=== PATIENT | female | born 1955 | race Caucasian/White ===

== ENCOUNTER 2017-04-18 07:45 | Day surgery (SDC) | payer OTHER ==
[~2017-04-18] VITALS: Ht 152.4 cm; Wt 87.0 kg
[2017-04-18] VITALS (11 sets, daily range): BP systolic 108–152; BP diastolic 46–74; PULSE 80–93; RESP 9–17; Ht 152.4 cm; Wt 87.0 kg
[~2017-04-18 07:45] MED LIST: ATROPINE 1 MG/10 ML SYRINGE IV PRN; BALANCED SALT SOLN 15 ML OPH IRRIG ONE; DIPHENHYDRAMINE 50 MG INJ IV PRN; EPHEDrine SULFATE 50 MG/5 ML SYG IV PRN; FENTAnyl 50 MCG/ML VIAL IV PRN; HYDROmorphONE (0.2 MG/ML) 10ML SYG IV PRN; LABETALOL HCL 20MG INJ IV PRN; MEPERIDINE 25 MG INJ IV PRN; MIDAZOLAM 1 MG/ML 2 ML INJ IV PRN; MITOMYCIN 5 MG INJ OP SCH; ONDANSETRON 4 MG INJ IV PRN; OXYCODONE/ACETAMINOPHEN (5/325) TAB PO PRN; hydrALAzine 20 MG INJ IV PRN; morphine (1 MG/ML) 10ML SYRINGE IV PRN
--- NOTE | 2017-04-18 07:52 | HPN ---
Date/Time of Note Date/Time of Note DATE: 04/18/17 TIME: 07:52 Interval H&P Admission Note Pt. seen H&P reviewed: No system changes TRUNG PHILLIPS MD Apr 18, 2017 07:52
[2017-04-18] MEDS ORDERED: METF1000 PO (08:27)
[2017-04-18] MEDS ORDERED: GABA300C16 PO (08:27)
[2017-04-18] MEDS ORDERED: SIMV10TA PO (08:28)
[2017-04-18] MEDS ORDERED: LORA10TA3 PO (08:28)
[2017-04-18] MEDS ORDERED: LOSA50TA6 PO (08:28)
[2017-04-18] MEDS ORDERED: ASPI-664 PO (08:29)
[2017-04-18] MEDS ORDERED: TOBDEXOI LEFT EYE (08:30)
[2017-04-18] MEDS ORDERED: TOBR5DRO14 LEFT EYE (08:31)
[2017-04-18] MEDS ORDERED: TOBRAMYCIN/DEXAMETH 3.5 GM OPH OINT ONE (09:40)
[2017-04-18] MEDS ORDERED: LIDOCAINE 2%/EPI 30 ML INJ ONE (09:40)
--- NOTE | 2017-04-18 11:02 | SIPON ---
Date/Time of Note Date/Time of Note DATE: 04/18/17 TIME: 09:55 Operative Report Preoperative Diagnosis [email or web address] Postoperative Diagnosis same Operation/Procedure Performed excision of pterygium Surgeon see signature line Anesthesia Type: MAC Estimated Blood Loss: none Transfusion Required: no Specimen: none Grafts/Implants: none Complications: no TRUNG PHILLIPS MD Apr 18, 2017 11:01
[2017-04-18] MEDS ORDERED: HYDROCODONE/APAP (5/325) TAB PO SCH (12:30)
[2017-04-18] MEDS ORDERED: TOBRAMYCIN/DEXAMETH 2.5 ML OPH ZFS SCH (15:00)
--- NOTE | 2017-04-18 15:03 | OPR ---
DATE OF OPERATION: 04/18/2017 OPERATION PERFORMED: Standard pterygium surgery, left eye. SURGEON: Yarely Allred MD MD SENIOR RESEARCH SCIENTIST: None. PREOPERATIVE DIAGNOSIS: Pterygium, left eye. POSTOPERATIVE DIAGNOSIS: Pterygium, left eye. OPERATION: Excision of pterygium, left eye; application of mitomycin C; closure of defect with conjunctival advancement flaps. DESCRIPTION OF PROCEDURE: Following standard preparation and draping of the patient, a solid-blade lid speculum was placed for immobilization of the lids. A small amount of 2% Xylocaine with epinephrine was injected beneath the body of the pterygium so as to elevate it from the underlying sclerae. After adequate local anesthesia was obtained, Ranulfo scissors were simply used to make an incision along the edges of the pterygium, amputating the body approximately 1 cm posterior to the limbus. At the limbus, the major portion of the tissue was simply excised using sharp scissors. Using a rotating arleen bur, all of the scar tissue on the cornea was removed down to clear cornea. At this point, bleeding points were secured with the heat cautery. Mitomycin C (0.2 mg/ml) was now applied to the limbal regions for three minutes. After three minutes, the eye was copiously irrigated with balanced salt solution. A peritomy was now performed both superiorly and inferiorly and relaxing incisions made at approximately the 6 and 12 o'clock positions. The undermining conjunctiva was now pulled both superiorly and inferiorly so as to close the previously made defect from which the pterygium had been removed. Sutures of interrupted 8-0 Vicryl were used and a bite of the underlying sclera was taken so as to ensure adequate maintenance of the flaps in a non-movable position. Betadine 5% solution was placed on the eye, along with TobraDex ointment. A light pressure dressing was applied, and the patient returned to the recovery room in satisfactory condition. Dictated By: Yarely Allred MD /[email or web address]/lg /Document#: [id number]
[2017-04-18] MEDS ORDERED: TOBRAMYCIN/DEXAMETH 3.5 GM OPH OINT OPER SCH (21:00)
== END 2017-04-18 12:45 | disposition home or self-care (01) ==
LOC: SDS 07:45
PROVIDERS: ATTEND Ophthalmology
DX: H11.002 Unspecified pterygium of left eye (principal); E11.9 Type 2 diabetes mellitus without complications; I10 Essential (primary) hypertension; E66.01 Morbid (severe) obesity due to excess calories; Z68.37 Body mass index [BMI] 37.0-37.9, adult
CPT/HCPCS: 65426; 82962; J9280; Z7512; Z7610